=== PATIENT | female | born 1985 | race Caucasian/White ===

== ENCOUNTER 2017-11-06 11:07 | Emergency (ER) | payer BC ==
[~2017-11-06] VITALS: Ht 154.9 cm; Wt 76.2 kg
[2017-11-06 11:10] VITALS: BP 136/84; PULSE 66; RESP 16; TEMP 97.2; O2SAT 99
[2017-11-06] MEDS ORDERED: SODIUM CHLOR 0.9% 1000 ML INJ 1,000 ML IV SCH (11:40)
[2017-11-06] MEDS ORDERED: ALUMINUM/MAGNESIUM/SIMETH 30 ML CUP PO ONE (11:45)
[2017-11-06] MEDS ORDERED: SODIUM CHLORIDE 0.9% FLUSH 10 ML FLUSH IV FLUSH PRN (11:45)
[2017-11-06] MEDS ORDERED: FAMOTIDINE 20 MG/2 ML VIAL IV PUSH ONE (11:45)
[2017-11-06] MEDS ORDERED: LIDOCAINE VISCOUS 2% SOLN 15 ML UDC PO ONE (11:45)
--- NOTE | 2017-11-06 11:58 | PD ---
HPI Chief Complaint: Foreign Body Time Seen by Provider: 11:40 Travel History International Travel<30 days: No Contact w/Intl Traveler<30days: No Traveled to known affect area: No History of Present Illness HPI 32-year-old female patient presents to the ER today because she says that she has been having 4 days history of discomfort at the epigastric area, feels like something is stuck there, states it started after she ate a piece of pork, states that her and her had eaten overcooked. She states that every time she tries to eat or drink something it feels like it is getting stuck there. She states that it hurts to swallow her own saliva. However, she has not experienced any vomiting, drooling, shortness of breath, or other symptoms. Modifying Factors: None Associated Signs & Symptoms: Feels like something stuck in her chest, discomfort with swallowing, dysphagia Risk Factors: None PFSH Past Medical History Diminished Hearing: No Tetanus Vaccination: > 5 Years Influenza Vaccination: No ?: Not LMP: 10/14/17 : 6 Para: 3 Miscarriage: 1 : 2 Social History Alcohol Use: Yes (SOCIAL) Tobacco Use: Yes (1-2 CIG DAILY) Substance Use: No (H/O ALCOHOL, COCAINE, MARIJUANA) Allergies-Medications (Allergen,Severity, Reaction): Coded Allergies: No Known Allergies (Unverified Adverse Reaction, Unknown, 11/06/17) Reported Meds & Prescriptions Reported Meds & Active Scripts Active No Active Prescriptions or Reported Medications Review of Systems Except as stated in HPI: all other systems reviewed are Neg Physical Exam Narrative GENERAL: Well-developed young female patient currently in mild distress. Awake and oriented 3. SKIN: Focused skin assessment warm/dry. HEAD: Atraumatic. Normocephalic. EYES: Pupils equal and round. No scleral icterus. No injection or drainage. ENT: No nasal bleeding or discharge. Mucous membranes pink and moist. NECK: Trachea midline. No JVD. Supple. CARDIOVASCULAR: Regular rate and rhythm. No murmur appreciated. RESPIRATORY: No accessory muscle use. Clear to auscultation. Breath sounds equal bilaterally. GASTROINTESTINAL: Abdomen soft, non-tender, nondistended. Hepatic and splenic margins not palpable. MUSCULOSKELETAL: No obvious deformities. No clubbing. No cyanosis. No edema. NEUROLOGICAL: Awake and alert. No obvious cranial nerve deficits. Motor grossly within normal limits. Normal speech. PSYCHIATRIC: Appropriate mood and affect; insight and judgment normal. Data Data Last Documented VS Vital Signs Date Time Temp Pulse Resp B/P (MAP) Pulse Ox O2 Delivery O2 Flow Rate FiO2 11/06/17 13:41 60 16 128/89 (102) 100 Room Air 11/06/17 11:10 97.2 Orders Orders Complete Blood Count With Diff (11/06/17 11:40) Comprehensive Metabolic Panel (11/06/17 11:40) Lipase (11/06/17 11:40) Iv Access Insert/Monitor (11/06/17 11:40) Ecg Monitoring (11/06/17 11:40) Oximetry (11/06/17 11:40) Sodium Chlor 0.9% 1000 Ml Inj (Ns 1000 M (11/06/17 11:40) Sodium Chloride 0.9% Flush (Ns Flush) (11/06/17 11:45) Electrocardiogram (11/06/17 11:40) Chest, Single Ap (11/06/17 11:40) Famotidine Inj (Pepcid Inj) (11/06/17 11:45) Al-Mag Hy-Si 40-40-4 Mg/Ml Liq (Mag-Al P (11/06/17 11:45) Lidocaine 2% Viscous (Xylocaine 2% Visco (11/06/17 11:45) Ed Urine Pregnancytest Poc (11/06/17 11:40) Glucagon Inj (Glucagon Inj) (11/06/17 13:00) Labs Laboratory Tests Test 11/06/17 12:15 White Blood Count 12.1 TH/MM3 Red Blood Count 4.52 MIL/MM3 Hemoglobin 13.3 GM/DL Hematocrit 39.3 % Mean Corpuscular Volume 86.9 FL Mean Corpuscular Hemoglobin 29.5 PG Mean Corpuscular Hemoglobin Concent 34.0 % Red Cell Distribution Width 12.9 % Platelet Count 210 TH/MM3 Mean Platelet Volume 9.2 FL Neutrophils (%) (Auto) 82.5 % Lymphocytes (%) (Auto) 10.0 % Monocytes (%) (Auto) 4.7 % Eosinophils (%) (Auto) 0.9 % Basophils (%) (Auto) 1.9 % Neutrophils # (Auto) 10.0 TH/MM3 Lymphocytes # (Auto) 1.2 TH/MM3 Monocytes # (Auto) 0.6 TH/MM3 Eosinophils # (Auto) 0.1 TH/MM3 Basophils # (Auto) 0.2 TH/MM3 CBC Comment DIFF FINAL Differential Comment Blood Urea Nitrogen 12 MG/DL Creatinine 0.74 MG/DL Random Glucose 87 MG/DL Total Protein 7.6 GM/DL Albumin 3.9 GM/DL Calcium Level 9.1 MG/DL Alkaline Phosphatase 91 U/L Aspartate Amino Transf (AST/SGOT) 19 U/L Alanine Aminotransferase (ALT/SGPT) 20 U/L Total Bilirubin 0.5 MG/DL Sodium Level 140 MEQ/L Potassium Level 3.8 MEQ/L Chloride Level 108 MEQ/L Carbon Dioxide Level 25.5 MEQ/L Anion Gap 7 MEQ/L Estimat Glomerular Filtration Rate 90 ML/MIN Lipase 142 U/L [facility] Medical Decision Making Medical Screen Exam Complete: Yes Emergency Medical Condition: Yes Medical Record Reviewed: Yes Interpretation(s) Laboratory Tests Test 11/06/17 12:15 White Blood Count 12.1 TH/MM3 (4.0-11.0) Neutrophils (%) (Auto) 82.5 % (16.0-70.0) Neutrophils # (Auto) 10.0 TH/MM3 (1.8-7.7) Chloride Level 108 MEQ/L (98-107) Last 24 hours Impressions Chest X-Ray 11/06/17 1140 Signed Impressions: Service Date/Time: Monday, November 06, 2017 12:22 - CONCLUSION: 1. Vertically oriented atelectatic changes in the left lower lung. 2. Lungs are otherwise clear. Heart size is normal. Randy Whitehead MD Differential Diagnosis Gastritis versus GERD versus foreign body in the esophagus Narrative Course Chest x-ray did not show any obvious foreign body. Patient is able to swallow in the ER although it pretty. She is able to keep control of her own saliva. She was initially given as a blocking medication and nausea medication in the ER. She was given a GI cocktail with some relief in symptoms but on swallowing , she experiences burning. She was then given glucagon without significant improvement in symptoms. At this point, case was discussed with Dr. Shay, and he states that he would like her to go on a clear liquid diet, be placed on Protonix and see him in the office tomorrow for an endoscopy. Return for any worsening in symptoms as necessary. The plan has been discussed with her and she states understanding. Diagnosis Primary Impression: Foreign body in esophagus Referrals: Antione Shay MD 1 day Med/Other Pt SpecificInfo: Prescription(s) given Scripts Pantoprazole (Protonix) 20 Mg Tab 20 MG PO BID for Reflux, #30 TAB 0 Refills Prov: Kristopher Stuart MD 11/06/17 Disposition: 01 DISCHARGE HOME Condition: Stable Kristopher Stuart MD November 06, 2017 11:58
[2017-11-06 12:16] VITALS: O2SAT 100
[2017-11-06 12:26] LABS: BASOPHIL # 0.2 TH/MM3 (0-0.2); BASOPHIL % 1.9 % (0.0-2.0); EOSINOPHIL # 0.1 TH/MM3 (0-0.4); EOSINOPHIL % 0.9 % (0.0-4.0); HEMATOCRIT 39.3 % (35.0-46.0); HEMOGLOBIN 13.3 GM/DL (11.6-15.3); LYMPHOCYTE # 1.2 TH/MM3 (1.0-4.8); MEAN CELL VOLUME 86.9 FL (80.0-100.0); MEAN CORPUSCULAR HEMOGLOBIN 29.5 PG (27.0-34.0); MEAN PLATELET VOLUME 9.2 FL (7.0-11.0); MONO % 4.7 % (0.0-8.0); MONOCYTE # 0.6 TH/MM3 (0-0.9); NEUT % 82.5 % (16.0-70.0); PLATELET COUNT 210 TH/MM3 (150-450); RED BLOOD COUNT 4.52 MIL/MM3 (4.00-5.30); RED CELL DISTRIBUTION WIDTH 12.9 % (11.6-17.2); WHITE BLOOD COUNT 12.1 TH/MM3 (4.0-11.0)
--- NOTE | 2017-11-06 12:46 | RADRPT ---
EXAM DATE/TIME: 11/06/2017 12:22 [facility] COMPARISON: No previous studies available for comparison. INDICATIONS : Epigastric pain after swallowing a piece of pork. MEDICAL HISTORY : None. SURGICAL HISTORY : None. ENCOUNTER: Initial ACUITY: 4 - 6 days PAIN SCORE: 3/10 LOCATION: chest FINDINGS: A single view of the chest demonstrates the lungs to be symmetrically aerated with vertically oriente d, linear atelectatic changes projecting over the left heart. Lungs are otherwise clear. The cardiom ediastinal contours are unremarkable. Osseous structures are intact. CONCLUSION: 1. Vertically oriented atelectatic changes in the left lower lung. 2. Lungs are otherwise clear. Heart size is normal. Randy Whitehead MD on November 06, 2017 at 12:41 Board Certified Radiologist. This report was verified electronically.
[2017-11-06] MEDS ORDERED: GLUCAGON 1 MG/ML VIAL IV PUSH ONE (13:00)
[2017-11-06 13:20] LABS: CHLORIDE 108 MEQ/L (98-107); SODIUM (NA) 140 MEQ/L (136-145)
[2017-11-06 13:23] LABS: CALCIUM 9.1 MG/DL (8.5-10.1)
[2017-11-06 13:24] LABS: ALBUMIN 3.9 GM/DL (3.4-5.0); BICARBONATE 25.5 MEQ/L (21.0-32.0); BLOOD UREA NITROGEN 12 MG/DL (7-18); GLUCOSE,RANDOM 87 MG/DL (74-106)
[2017-11-06 13:26] LABS: ALT (GPT) 20 U/L (10-53)
[2017-11-06 13:27] LABS: AST (GOT) 19 U/L (15-37); CREATININE 0.74 MG/DL (0.50-1.00); GLOMERULAR FILTRATION RATE 90 ML/MIN (>89)
[2017-11-06 13:28] LABS: TOTAL BILIRUBIN ADULT 0.5 MG/DL (0.2-1.0); TOTAL PROTEIN 7.6 GM/DL (6.4-8.2)
[2017-11-06 13:30] LABS: ALKALINE PHOSPHATASE 91 U/L (45-117)
[2017-11-06 13:41] VITALS: BP 128/89; PULSE 60; RESP 16; O2SAT 100
[2017-11-06 15:16] VITALS: BP 116/77; PULSE 57; RESP 16; O2SAT 99
[2017-11-06] MEDS ORDERED: PANT20 PO (15:16)
--- NOTE | 2017-11-07 19:08 | EKG ---
Date Performed: 11/06/2017 Time Performed: 12:12:35 PTAGE: 32 years EKG: SINUS BRADYCARDIA INCOMPLETE RIGHT BUNDLE BRANCH BLOCK BORDERLINE ECG NO PREVIOUS TRACING DOCTOR: Luis Iglesias Interpretating Date/Time 11/07/2017 19:06:29
== END 2017-11-06 15:24 | disposition home or self-care (01) ==
LOC: PHED 11:07
DX: T18.128A Food in esophagus causing other injury, initial encounter (principal); R00.1 Bradycardia, unspecified; I45.10 Unspecified right bundle-branch block; F14.90 Cocaine use, unspecified, uncomplicated; F12.90 Cannabis use, unspecified, uncomplicated; F17.210 Nicotine dependence, cigarettes, uncomplicated
CPT/HCPCS: 71045; 80053; 83690; 84703; 85025; 93005; 96361; 96374; 96375; 99285; J1610; J7030